=== PATIENT | male | born 1990 | race Caucasian/White ===

== ENCOUNTER 2017-03-17 19:40 | Observation (INO) | payer OTHER ==
--- NOTE | 2017-03-17 21:22 | ER Document Report ---
ED General - General Chief Complaint: Abdominal Pain Stated Complaint: ABDOMINAL PAIN Time Seen by Provider: 03/17/17 21:08 Notes: 26-year-old male presents with abdominal pain initially bandlike lower abdominal pain, constant, now isolated to the right lower quadrant for several hours associated with mild nausea and anorexia. He has no fevers or chills and no urinary symptoms. Denies testicular pain. Never had belly surgery. TRAVEL OUTSIDE OF THE [place] IN LAST 30 DAYS: No - Related Data Allergies/Adverse Reactions: benzocaine Adverse Reaction (Verified 03/17/17 21:14) Past Medical History - Social History Smoking Status: Current Every Day Smoker Frequency of alcohol use: Occasional Drug Abuse: None Family History: Reviewed & Not Pertinent Patient has suicidal ideation: No Patient has homicidal ideation: No Renal/ Medical History: Denies: Hx Peritoneal Dialysis - Immunizations Hx Diphtheria, Pertussis, Tetanus Vaccination: Yes Review of Systems - Review of Systems Notes: REVIEW OF SYSTEMS GEN: Denies fever, chills, weight loss ENT: Denies sore throat, nasal discharge, ear pain EYES: Denies blurry vision, eye pain, discharge CV: Denies chest pain, palpitations, edema RESP: Denies cough, shortness of breath, wheezing GI: Abdominal pain nausea and anorexia MSK: Denies joint pain/swelling, edema, SKIN: Denies rash, skin lesions LYMPH: Denies swollen glands/lymph nodes NEURO: Denies headache, focal weakness or numbness, dizziness PSYCH: Denies depression, suicidal or homicidal ideation PHYSICAL EXAMINATION General: No acute distress, well-nourished Head: Atraumatic, normocephalic ENT: Mouth normal, oropharynx moist, no exudates or tonsillar enlargement Eyes: Conjunctiva normal, pupils equal, lids normal Neck: No JVD, supple, no guarding CVS: Normal rate, regular rhythm, no murmurs Resp: No resp distress, equal and normal breath sounds bilaterally GI: Nondistended, soft, point tenderness at McBurney's point, no guarding, positive Rovsing sign, no rebound or guarding Ext: No deformities, no edema, normal range of motion in upper and lower ext Back: No CVA or midline TTP Skin: No rash, warm Lymphatic: No lymphadeopathy noted Neuro: Awake, alert. Face symmetric. GCS 15. Physical Exam - Vital signs Vitals: Temp Pulse Resp BP Pulse Ox 98.7 F 97 20 137/83 H 97 03/17/17 19:44 03/17/17 19:44 03/17/17 19:44 03/17/17 19:44 03/17/17 19:44 Course - Re-evaluation Re-evalutation: 03/17/17 21:21 26-year-old male with signs and symptoms of appendicitis. Vitals are stable. He is seen in triage. There is a delay in getting beds. I asked him to be brought to a hallway bed so we can get IV access, and get labs. I will order a CT but will consult Dr. Blanton presumptively. 03/17/17 21:47 Patient has leukocytosis. Patient CT, my read, shows unruptured sinusitis. Discussed with Dr. Blanton at 9:45 PM. Patient was escorted to 13 hallway bed where he could be examined. Ordered Zosyn per Dr. Blanton's recommendation. N.p.o., fluids, morphine. - Vital Signs Vital signs: Temp Pulse Resp BP Pulse Ox 98.7 F 97 20 137/83 H 97 03/17/17 19:44 03/17/17 19:44 03/17/17 19:44 03/17/17 19:44 03/17/17 19:44 - Laboratory Result Diagrams: 03/17/17 21:22 03/17/17 21:22 Laboratory results interpreted by me: 03/17/17 21:22 WBC 13.1 H Seg Neutrophils % 80.6 H Lymphocytes % 11.0 L Absolute Neutrophils 10.5 H - Diagnostic Test Radiology reviewed: Image reviewed, Reports reviewed Discharge - Discharge Clinical Impression: Appendicitis, acute, with peritonitis Condition: Fair Disposition: ADMITTED INPATIENT Admitting Provider: Surgicalist Unit Admitted: Surgical Floor
[2017-03-17 21:34] LABS: ABSOLUTE EOSINOPHILS # (AUTO) 0.1 10^3/uL (0.0-0.6); ABSOLUTE LYMPHOCYTES (AUTO) 1.4 10^3/uL (0.5-4.7); ABSOLUTE NEUT (AUTO) 10.5 10^3/uL (1.7-8.2); BASOPHILS % (AUTO) 0.3 % (0-2); EOSINOPHILS % (AUTO) 0.8 % (0-6); HEMATOCRIT 46.4 % (37.9-51.0); MEAN CORPUSCULAR HEMOGLOBIN 30.1 pg (27.0-33.4); MEAN CORPUSCULAR HGB CONC 34.6 g/dL (32.0-36.0); MEAN CORPUSCULAR VOLUME 87 fl (80-97); MONOCYTES % (AUTO) 7.3 % (3-13); PLATELET COUNT 234 10^3/uL (150-450); RED BLOOD COUNT 5.33 10^6/uL (4.35-5.55); RED CELL DISTRIBUTION WIDTH 13.2 % (11.5-14.0); SEGMENTED NEUTROPHILS % (AUTO) 80.6 % (42-78); TOTAL CELLS COUNTED % (AUTO) 100 %; WHITE BLOOD COUNT 13.1 10^3/uL (4.0-10.5)
[2017-03-17] MEDS ORDERED: PIPERACILLIN/TAZOBACTAM 3.375 GM VIAL IV ONE (21:42)
[2017-03-17] MEDS ORDERED: NORMAL SALINE 1000 ML 1,000 ML IV ONE (21:43)
[2017-03-17 21:47] LABS: ALANINE AMINOTRANSFERASE 124 U/L (21-72); ALBUMIN 4.9 g/dL (3.5-5.0); ALKALINE PHOSPHATASE 67 U/L (38-126); ANION GAP 12 (5-19); ASPARTATE AMINO TRANSFERASE 51 U/L (17-59); BILIRUBIN,DIRECT 0.3 mg/dL (0.0-0.4); BILIRUBIN,TOTAL 0.6 mg/dL (0.2-1.3); BLOOD UREA NITROGEN 18 mg/dL (7-20); CALCIUM 10.6 mg/dL (8.4-10.2); CARBON DIOXIDE 31 mmol/L (22-30); CHLORIDE 99 mmol/L (98-107); GLUCOSE 99 mg/dL (75-110); LIPASE 60.8 U/L (23-300); SODIUM 141.5 mmol/L (137-145); TOTAL PROTEIN 7.7 g/dL (6.3-8.2)
[2017-03-17] MEDS ORDERED: MORPHINE SULFATE 10 MG/ML INJ IV ONE (21:47)
--- NOTE | 2017-03-17 22:06 | RADIOLOGY REPORT (SQ) ---
EXAM DESCRIPTION: CT ABD/PELVIS WITH IV ONLY COMPLETED DATE/TIME: 03/17/2017 9:44 pm REASON FOR STUDY: RLQ PAIN. COMPARISON: None. TECHNIQUE: CT scan of the abdomen and pelvis performed using helical scanning technique with dynamic intravenous contrast injection. No oral contrast. Images reviewed with lung, soft tissue, and bone windows. Reconstructed coronal and sagittal MPR images reviewed. Delayed images for evaluation of the urinary system also acquired. All images stored on PACS. All CT scanners at this facility use dose modulation, iterative reconstruction, and/or weight based d osing when appropriate to reduce radiation dose to as low as reasonably achievable (ALARA). [facility]: Dose Right [facility]: CareDose [facility]: Dose Right [facility]: Teradose 4D [facility]: [employer] CONTRAST TYPE AND DOSE: contrast/concentration: Isovue 370.00 mg/ml; Total Contrast Delivered: 94.0 ml; Total Saline Delivered: 28.1 ml RENAL FUNCTION: None required. The patient is less than 50 years old. RADIATION DOSE: CT Rad equipment meets quality standard of care and radiation dose reduction techniq ues were employed. CTDIvol: 7.5 mGy. DLP: 894 mGy-cm.. LIMITATIONS: None. FINDINGS: LOWER CHEST: No significant findings. No nodules or infiltrates. LIVER: Normal size. No masses. No dilated ducts. SPLEEN: Normal size. No focal lesions. PANCREAS: No masses. No significant calcifications. No adjacent inflammation or peripancreatic fluid collections. Pancreatic duct not dilated. GALLBLADDER: No identified stones by CT criteria. No inflammatory changes to suggest cholecystitis. ADRENAL GLANDS: No significant masses or asymmetry. RIGHT KIDNEY AND URETER: No solid masses. No significant calcifications. No hydronephrosis or hyd roureter. LEFT KIDNEY AND URETER: No solid masses. No significant calcifications. No hydronephrosis or hydr oureter. AORTA AND VESSELS: No aneurysm. No dissection. Renal arteries, SMA, celiac without stenosis. RETROPERITONEUM: No retroperitoneal adenopathy, hemorrhage or masses. BOWEL AND PERITONEAL CAVITY: No masses or inflammatory changes. No free fluid or peritoneal masses. APPENDIX: Appendix borderline dilated at 9.3 mm. Mild periappendiceal inflammation. Findings suppor t early acute appendicitis. PELVIS: No mass. No free fluid. Normal bladder. ABDOMINAL WALL: No masses. No hernias. BONES: No significant or acute findings. OTHER: No other significant finding. IMPRESSION: Early acute appendicitis. TECHNICAL DOCUMENTATION: JOB ID: [id number] Quality ID # [id number]: Final reports with documentation of one or more dose reduction techniques (e.g., Au tomated exposure control, adjustment of the mA and/or kV according to patient size, use of iterative reconstruction technique) 2010 [employer]- All Rights Reserved
[2017-03-17 22:41] LABS: AMORPHOUS SEDIMENT,URINE TRACE /HPF; APPEARANCE,URINE CLOUDY; BILIRUBIN,URINE NEGATIVE (NEGATIVE); COLOR,URINE YELLOW; GLUCOSE, URINE NEGATIVE (NEGATIVE); KETONES,URINE NEGATIVE (NEGATIVE); LEUKOCYTE ESTERASE,URINE NEGATIVE (NEGATIVE); NITRITE,URINE NEGATIVE (NEGATIVE); PROTEIN,URINE NEGATIVE (NEGATIVE); URINE SPECIFIC GRAVITY 1.048; UROBILINOGEN,URINE NEGATIVE mg/dL (<2.0)
--- NOTE | 2017-03-17 22:52 | PDOC H&P ---
History of Present Illness Admission Date/PCP: 03/17/17 22:15 Patient complains of: abdominal pains with nausea History of Present Illness: KIERA MCNEILL is a 26 year old male C/O periumbilical pains at 9 am today. This localized to the RLQ at 1 pm with nausea. Went to ED where CT scan of abdomen showed acute appendicitis. Past Medical History Cardiac Medical History: Reports: None Past Surgical History Past Surgical History: Reports: Other - tooth extraction and noted questionable allergy to benzocaine topical Social History Smoking Status: Current Every Day Smoker Cigarettes Packs Per Day: 0.2 Frequency of Alcohol Use: Social Hx Recreational Drug Use: No Hx Prescription Drug Abuse: No Family History Family History: Reviewed & Not Pertinent Parental Family History Reviewed: Yes - both parents Alive and well Children Family History Reviewed: No Sibling(s) Family History Reviewed.: No Medication/Allergy Home Medications: Oxycodone HCl/Acetaminophen [Percocet 10-325 Mg Tablet] 1 each PO Q4HP PRN #15 tablet 06/17/13 Promethazine HCl [Phenergan 25 mg Tablet] 25 mg PO Q4HP PRN #15 tablet 06/17/13 Allergies/Adverse Reactions: benzocaine Adverse Reaction (Verified 03/17/17 21:14) Review of Systems Constitutional: PRESENT: other - no fever/chills Eyes: PRESENT: other - no visual/hearing problems Nose, Mouth, and Throat: PRESENT: other - no sore throat Cardiovascular: PRESENT: other - no chest pain Respiratory: PRESENT: other - no cough Gastrointestinal: PRESENT: abdominal pain - RLQ pains, nausea Genitourinary: PRESENT: other - no dysuria Musculoskeletal: PRESENT: other - no joint swelling Integumentary: PRESENT: other - no rash Neurological: PRESENT: other - no seizures Psychiatric: PRESENT: other - no anxiety Endocrine: PRESENT: other - no polyuria Hematologic/Lymphatic: PRESENT: other - easy bruisability/lymphadenopathy Physical Exam Vital Signs: Temp Pulse Resp BP Pulse Ox 98.7 F 97 20 137/83 H 97 03/17/17 19:44 03/17/17 19:44 03/17/17 19:44 03/17/17 19:44 03/17/17 19:44 General appearance: PRESENT: no acute distress Head exam: PRESENT: atraumatic Eye exam: PRESENT: conjunctiva pink Ear exam: PRESENT: normal external ear exam Mouth exam: PRESENT: moist, tongue midline Neck exam: PRESENT: full ROM Respiratory exam: PRESENT: clear to auscultation noy Cardiovascular exam: PRESENT: RRR Pulses: PRESENT: normal radial pulses Vascular exam: PRESENT: normal capillary refill GI/Abdominal exam: PRESENT: soft, tenderness - RLQ and mild LLQ with Rovsing sign Rectal exam: PRESENT: deferred Extremities exam: PRESENT: full ROM Musculoskeletal exam: PRESENT: ambulatory Neurological exam: PRESENT: alert, oriented to person, oriented to place, oriented to time, oriented to situation Psychiatric exam: PRESENT: appropriate affect Skin exam: PRESENT: normal color, warm Results Impressions: Abdomen/Pelvis CT 03/17/17 21:22 IMPRESSION: Early acute appendicitis. Assessment & Plan - Diagnosis (1) Appendicitis, acute, with peritonitis Is this a current diagnosis for this admission?: Yes - Time Time Spent: 30 to 50 Minutes - Inpatient Certification Based on my medical assessment, after consideration of the patient's comorbidities, presenting symptoms, or acuity I expect that the services needed warrant INPATIENT care.: No I certify that my determination is in accordance with my understanding of Medicare's requirements for reasonable and necessary INPATIENT services [42 CFR 412.3e].: Yes Medical Necessity: Need for IV Antibiotics, Need for Surgery - Plan Summary Plan Summary: IV antibiotics NPO Hydrate Lap appendectomy in AM
[2017-03-17] MEDS ORDERED: ONDANSETRON HCL INJ/PF 4 MG/2 ML SDV IV ONE (22:54)
[2017-03-18] MEDS ORDERED: PIPERACILLIN/TAZOBACTAM 3.375 GM VIAL IV PRN (00:57)
[2017-03-18] MEDS: MORPHINE SULFATE 10 MG/ML INJ IV PRN ×2 (02:58→06:44)
[2017-03-18] MEDS: NORMAL SALINE 1000 ML 1,000 ML IV PRN ×3 (02:59→17:58)
[2017-03-18] MEDS ORDERED: PIPERACILLIN/TAZOBACTAM 3.375 GM VIAL IV SCH (06:00)
[2017-03-18] MEDS: PIPERACILLIN SODIUM/TAZOBACTAM 3.375 GM in NORMAL SALINE 100 ML IV SCH ×3 (06:44→17:57)
--- NOTE | 2017-03-18 09:24 | PDOC PROGRESS REPORT ---
Subjective Progress Note for:: 03/18/17 Subjective:: Right lower quadrant abdominal pain. Persistent. Better with pain medication. Reason For Visit: ACUTE APPENDICITIS Physical Exam Vital Signs: Temp Pulse Resp BP Pulse Ox 98.5 F 57 L 15 114/64 97 03/18/17 06:24 03/18/17 06:24 03/18/17 06:24 03/18/17 06:24 03/18/17 06:24 General appearance: PRESENT: no acute distress, cooperative GI/Abdominal exam: PRESENT: other - Soft, mildly distended, focal tenderness to palpation in the right lower quadrant with guarding. Results Impressions: Abdomen/Pelvis CT 03/17/17 21:22 IMPRESSION: Early acute appendicitis. Assessment & Plan - Diagnosis (1) Appendicitis, acute Qualifiers: Acute appendicitis type: with localized peritonitis Qualified Code(s): K35.3 - Acute appendicitis with localized peritonitis Is this a current diagnosis for this admission?: Yes Plan: Likely appendicitis. Plan laparoscopic appendectomy, possible open appendectomy. I have discussed with the patient the risk and benefits of the procedure including risk of mistaken diagnosis, bleeding, infection, adjacent structure injury, stump leak, possibility of conversion to an open surgery. Patient understands and agrees to proceed
[2017-03-18] MEDS ORDERED: METOCLOPRAMIDE HCL INJ/PF 10 MG/2 ML SDV ONE (10:10)
[2017-03-18] MEDS ORDERED: GLYCOPYRROLATE INJ 0.4 MG/2 ML VIAL ONE (10:10)
[2017-03-18] MEDS ORDERED: DEXAMETHASONE SOD PHOSPHATE INJ 4 MG/1 ML VIAL ONE (10:10)
[2017-03-18] MEDS ORDERED: KETOROLAC TROMETHAMINE 60 MG/2 ML SDV ONE (10:10)
[2017-03-18] MEDS ORDERED: ROCURONIUM BROMIDE INJ 50 MG/5 ML VIAL IV ONE (10:10)
[2017-03-18] MEDS ORDERED: SUCCINYLCHOLINE CHLORIDE INJ 200 MG/10 ML VIAL ONE (10:10)
[2017-03-18] MEDS ORDERED: ONDANSETRON HCL INJ/PF 4 MG/2 ML SDV ONE (10:10)
[2017-03-18] MEDS ORDERED: NEOSTIGMINE METHYLSULFATE 10 MG/10 ML VIAL ONE (10:10)
[2017-03-18] MEDS ORDERED: LIDOCAINE 2% INJ-PF (20 MG/ML) 2 ML AMPUL ONE (10:10)
[2017-03-18] MEDS ORDERED: PROPOFOL INJ 200 MG/20 ML VIAL IV ONE (10:30)
[2017-03-18] MEDS ORDERED: MIDAZOLAM 2 MG/2 ML INJ ONE (10:30)
[2017-03-18] MEDS ORDERED: HYDROMORPHONE HCL INJ/PF 2 MG/ML AMPULE ONE (10:30)
[2017-03-18] MEDS ORDERED: ACETAMINOPHEN 100 ML IV ONE (10:30)
[2017-03-18] MEDS ORDERED: FENTANYL CITRATE INJ/PF 100 MCG/2 ML AMPUL ONE (10:30)
[2017-03-18] MEDS ORDERED: BUPIVACAINE HCL 0.25 % INJ/PF (2.5 MG/1 ML) 30 ML VIAL ONE (10:42)
[2017-03-18] MEDS ORDERED: DIPHENHYDRAMINE HCL 50 MG/ML VIAL IV PRN (11:54)
[2017-03-18] MEDS ORDERED: ONDANSETRON HCL INJ/PF 4 MG/2 ML SDV IV PRN (11:54)
[2017-03-18] MEDS ORDERED: OXYCODONE-ACETAMINOPHEN 5-325 MG TABLET PO PRN ×2 (11:54)
[2017-03-18] MEDS ORDERED: PROMETHAZINE HCL INJ 25 MG/1 ML VIAL IV PRN ×2 (11:54)
[2017-03-18] MEDS ORDERED: MEPERIDINE HCL/PF INJ 25 MG/1 ML DISP.SYRIN IV PRN (11:54)
[2017-03-18] MEDS ORDERED: FENTANYL CITRATE INJ/PF 100 MCG/2 ML AMPUL IV PRN ×3 (11:54)
--- NOTE | 2017-03-18 12:45 | Operative Report ---
Operative Report DATE OF SURGERY: 03/18/17 PREOPERATIVE DIAGNOSIS: Appendicitis POSTOPERATIVE DIAGNOSIS: Appendicitis OPERATION: Laparoscopic appendectomy SURGEON: KADEEM GAXIOLA ANESTHESIA: GA TISSUE REMOVED OR ALTERED: Appendix COMPLICATIONS: None ESTIMATED BLOOD LOSS: Minimal INTRAOPERATIVE FINDINGS: Inflamed distended appendix PROCEDURE: Informed consent was obtained. Patient was brought to the operating room placed on the operating room table in the supine position. After satisfactory induction of general anesthesia patient's abdomen was prepped and draped in usual sterile fashion. A supraumbilical midline incision was made dissection carried down through the fascia and the peritoneal cavity was entered. Landis trocar was inserted and pneumoperitoneum produced with good patient toleration. A 5 mm trocar was placed in the right lateral abdomen lateral to the rectus above the level of the umbilicus. Another 5 mm trocar was placed in the left lateral abdomen lateral to the rectus below the level of the umbilicus. Patient was placed in a Trendelenburg position with the right side up. The distal half of the appendix appeared distended and inflamed consistent with nonperforated appendicitis. A plane was created between the mesoappendix and the appendix at the base of the appendix. Using a Endo SEAN stapling device the appendix was taken flush with the cecum. The stump closure appeared secure. The mesoappendix was taken using a vascular load of the Endo SEAN stapling device. Hemostasis appeared good. The appendix was placed in an Endobag and removed through the Landis trocar site fascial defect. All trochars were removed under the direct vision of the laparoscope to ensure hemostasis. The Landis trocar site fascial defect was closed with interrupted Vicryl sutures. All skin incisions were closed with subcuticular interrupted Monocryl sutures. Marcaine was injected at the operative sites. Patient tolerated procedure well with no apparent complications and was taken to the recovery area in stable condition.
[2017-03-18] MEDS: ONDANSETRON HCL INJ/PF 4 MG/2 ML SDV IV PRN ×2 (14:07→20:19)
[2017-03-18] MEDS: OXYCODONE-ACETAMINOPHEN 5-325 MG TABLET PO PRN ×2 (15:16→20:19)
--- NOTE | 2017-03-18 15:17 | PDOC PROGRESS REPORT ---
Subjective Progress Note for:: 03/18/17 Subjective:: Feels better than preoperative. Pain is markedly decreased Reason For Visit: ACUTE APPENDICITIS Physical Exam Vital Signs: Temp Pulse Resp BP Pulse Ox 97.4 F 60 16 105/53 L 95 03/18/17 14:40 03/18/17 14:40 03/18/17 14:40 03/18/17 14:40 03/18/17 14:40 Intake & Output 03/17/17 03/18/17 03/19/17 06:59 06:59 06:59 Intake Total 1200 Output Total 10 Balance 1190 General appearance: PRESENT: no acute distress, cooperative Respiratory exam: PRESENT: clear to auscultation noy Cardiovascular exam: PRESENT: RRR GI/Abdominal exam: PRESENT: other - Soft, nondistended, mild right lower quadrant tenderness that is markedly improved from preoperative Extremities exam: PRESENT: other - No swelling Results Impressions: Abdomen/Pelvis CT 03/17/17 21:22 IMPRESSION: Early acute appendicitis. Assessment & Plan - Diagnosis (1) Appendicitis, acute Qualifiers: Acute appendicitis type: with localized peritonitis Qualified Code(s): K35.3 - Acute appendicitis with localized peritonitis Is this a current diagnosis for this admission?: Yes Plan: Status post laparoscopic appendectomy. Doing well. Will try clears. Encourage ambulation. Likely discharge to home tomorrow.
[2017-03-19] MEDS: PIPERACILLIN SODIUM/TAZOBACTAM 3.375 GM in NORMAL SALINE 100 ML IV SCH ×2 (00:37→06:08)
[2017-03-19] MEDS: ONDANSETRON HCL INJ/PF 4 MG/2 ML SDV IV PRN (04:46)
[2017-03-19] MEDS: OXYCODONE-ACETAMINOPHEN 5-325 MG TABLET PO PRN (04:46)
[2017-03-19] MEDS: NORMAL SALINE 1000 ML 1,000 ML IV PRN (04:47)
--- NOTE | 2017-03-19 09:01 | PDOC DISCHARGE SUMMARY ---
Discharge Summary (SDC) - Discharge Final Diagnosis: Acute appendicitis Date of Surgery: 03/18/17 - lap appendectomy 03/18/17 Discharge Date: 03/19/17 - RTW in 1 week Condition: Good Treatment or Instructions: F/U surgical clinic in 2 weeks c/o Dr Box Prescriptions: Oxycodone HCl/Acetaminophen [Percocet 5-325 mg Tablet] 1 tab PO Q4HP PRN #10 tablet PRN Reason:
[2017-03-19 10:37] VITALS: BP 107/60
== END 2017-03-19 11:25 | disposition home or self-care (01) ==
LOC: ER 19:40 → INTOOBSV 22:15 → EH 22:15 → 2N 03-18 13:10
PROVIDERS: ADMIT Surgery; ATTEND Surgery
PROC: 0DTJ4ZZ Resection of Appendix, Percutaneous Endoscopic Approach (ICD-10-PCS; principal; 2017-03-18 11:00)
DX: K35.3 Acute appendicitis with localized peritonitis (principal); F17.210 Nicotine dependence, cigarettes, uncomplicated
CPT/HCPCS: 99285; 36415; 83690; 85025; 80053; 81001; 88304 ×2; 74177; 44970; J2250; J3490 ×2; J1100; J1885; J2765; J2270 ×2; J1170; J0330; J2405 ×3; J7030 ×3; J2704; J2543 ×3; J0131; 840; J3010